=== PATIENT | female | born 1955 | race Caucasian/White ===

== ENCOUNTER → 2016-11-21 | Outpatient (CLI) | payer MEDICAID ==
[~2016-11-21] MED LIST: ABILIFY 15MG TA15 MG PO; ABILIFY5 MG PO; ALBUTEROL0.83 MG/ML IH; ARICEPT 5MG PO; ARICEPT10 MG PO; ASPIRIN 81M81 MG/TA2 PO; ATIVAN; ATIVAN 0.50.5 MG/TAB PO; ATIVAN 1MG T1 MG/TAB PO; ATIVAN0.5 MG PO; AZO-CRANBERRY450 MG PO; BENZTROPINE1 MG PO; BUSPAR10 MG PO; BUSPIRONE; CALCIUM600 MG PO; CALTRATE-600 W600 MG PO; CATAPRES 0.1MG0.1 MG PO; CELEXA 20MG20 MG/TAB PO; CELEXA20 MG PO; COGENTIN PO; DEPAKENE 250 MG/1 ML PO; DEPAKENE250 MG PO; DEPAKOTE DR500 MG PO; DEPAKOTE ER 50500 MG PO; DEPAKOTE500 M1 PO; DEPAKOTE500 MG PO; DESYREL 50MG50 MG PO; DILANTIN O100 MG/4 M PO; DILANTIN PO; DULCOLAX S10 MG/SUPP RC; DULCOLAX TAB5 MG PO; GENTLE LAXATIVE10 MG RC; HALDOL 2MG T2 MG/TAB PO; HALDOL 5MG T5 MG/TAB PO; HALDOL 5MG/ML5 MG/ML PO; HALDOL ORAL 22 MG/ML PO; LEVOTHYROXIN0.075 MG PO; LEVOTHYROXINE PO; LEVOXYL0.075 MG PO; LORTAB 5/500 501 TAB PO; MAALOX PLUS PO; MILK OF MA400 MG/51 PO; MILK OF MA400 MG/52; MILK OF MAGNESI30 ML PO; MIRALAX PA17 GM/Dose PO; MULTI-VITAMIN W1 TA1 PO; MVI; MYLANTA MAXIMU355 ML PO; NAMENDA XR PO; NAPROSYN375 MG PO; NORCO 325 MG-51 TAB PO; NORCO PO; OLANZAPINE IM; OMNICEF 300MG300 MG PO; PHENERGAN 25 TA25 MG; PLAVIX 75MG TAB75 MG PO; PRILOSEC 20MG20 MG PO; RISPERDAL 0.5M0.5 MG PO; RISPERDALC37.5 MG/2 IJ; SYNTHROID0.075 MG PO; SYNTHROID0.075 MG/T PO; SYNTHROID0.125 MG/T PO; TIROSINT75 MCG PO; TYLENOL 325MG325 MG PO; TYLENOL ARTHRI650 M1 PO; VENTOLIN0.09 MG IH; VITAMIN C500 MG PO; ZITHROMAX Z PA250 MG PO; ZOCOR 20MG20 MG PO; ZYPREXA ZYD10 MG/TAB PO; ZYPREXA10 MG
[2016-11-21 17:57] LABS: PH 7 (5-8); SQUAMOUS EPITHELIAL 0-2 /hpf; URINE APPEARANCE Clear; URINE BACTERIA None Seen /hpf; URINE BILIRUBIN Negative (NEGATIVE); URINE BLOOD Negative (NEGATIVE); URINE COLOR Straw; URINE GLUCOSE Negative (NEGATIVE); URINE KETONE Negative (NEGATIVE); URINE RBC None Seen /hpf; URINE UROBILINOGEN Negative (NEGATIVE); URINE WBC None Seen /hpf
== END ==
LOC: ZCOL.LAB 17:33
PROVIDERS: Internal Medicine
DX: F25.8 Other schizoaffective disorders (principal)

== ENCOUNTER → 2016-12-22 | Outpatient (CLI) | payer MEDICAID | LOC: ZCOL.LAB 08:30 | DX: Z01.89 Encounter for other specified special examinations (principal) ==

== ENCOUNTER → 2017-02-24 | Outpatient (CLI) | payer MEDICAID ==
[2017-02-24 21:59] LABS: BASO # 0.1 (0.0-0.2); BASO % 0.8 % (0.0-2.0); EOS # 0.1 (0.0-0.7); EOS % 1.1 % (0-4.0); GRAN % 63.6 % (42.2-75.2); HEMATOCRIT 40.9 % (37.0-47.0); HEMOGLOBIN 13.4 g/dl (12.5-16.0); LYMPH # 1.7 (1.2-3.4); LYMPH % 26.9 % (20.0-51.0); MEAN CELL VOLUME 97 fl (80.0-100.0); MEAN CORPUSCULAR HEMOGLOBIN 32 pg (27.0-31.0); MEAN CORPUSCULAR HGB CONC 33 g/dl (33.0-37.0); MEAN PLATELET VOLUME 11.6 fl (7.4-10.4); MONO # 0.5 (0.1-0.6); MONO % 7.6 % (1.7-9.3); PLATELET COUNT 187 K/mm3 (130-400); RED BLOOD COUNT 4.23 M/mm3 (4.10-5.30); REDCELL DISTRIBUTION WIDTH-CV 14.3 % (11.5-14.5); WHITE BLOOD COUNT 6.3 K/mm3 (4.8-10.8)
[2017-02-24 22:10] LABS: ADJUSTED CALCIUM 9.6 mg/dL (8.4-10.2); ALBUMIN 3.7 gm/dL (3.5-5.0); BILIRUBIN,TOTAL 0.6 mg/dL (0.0-1.0); CALCIUM 9.4 mg/dL (8.4-10.2); CREATININE, serum 0.49 mg/dL (0.52-1.25); POTASSIUM 4.8 mmol/L (3.4-5.0)
== END ==
LOC: ZCOL.LAB 13:48
PROVIDERS: Internal Medicine
DX: Z02.89 Encounter for other administrative examinations (principal)

== ENCOUNTER 2017-04-12 14:14 | Emergency (ER) | payer MEDICAID ==
[~2017-04-12] VITALS: Ht 160 cm; Wt 59.1 kg
[~2017-04-12 14:14] MED LIST changes: -DILANTIN PO; -DULCOLAX TAB5 MG PO; -MILK OF MA400 MG/52; -MULTI-VITAMIN W1 TA1 PO; -OMNICEF 300MG300 MG PO; -VITAMIN C500 MG PO
[2017-04-12 14:15] VITALS: BP 114/60; TEMP 97.5
[2017-04-12] MEDS ORDERED: MIRALAX PA17 GM/Dose PO (14:29)
[2017-04-12] MEDS ORDERED: DILANTIN PO (14:31)
[2017-04-12] MEDS ORDERED: MILK OF MA400 MG/52 (14:36)
[2017-04-12] MEDS ORDERED: ATIVAN 1MG T1 MG/TAB PO (14:44)
[2017-04-12 16:28] VITALS: PULSE 76
[2017-04-12] MEDS ORDERED: OMNICEF 300MG300 MG PO (16:28)
== END 2017-04-12 16:45 | disposition home or self-care (01) ==
LOC: COL.ER 14:14
DX: S61.315A Laceration without foreign body of left ring finger with damage to nail, initial encounter (principal); W22.8XXA Striking against or struck by other objects, initial encounter; Y92.129 Unspecified place in nursing home as the place of occurrence of the external cause; F20.9 Schizophrenia, unspecified
CPT/HCPCS: J2060

== ENCOUNTER 2017-05-04 16:30 | Emergency (ER) | payer MEDICAID ==
[~2017-05-04] VITALS: Ht 165.1 cm; Wt 63.6 kg
[~2017-05-04 16:30] MED LIST changes: +DILANTIN PO; +MILK OF MA400 MG/52; +OMNICEF 300MG300 MG PO
[2017-05-04 17:38] LABS: BASO % 0.5 % (0.0-2.0); EOS % 0.3 % (0-4.0); GRAN # 5.8 (1.4-6.5); GRAN % 67.8 % (42.2-75.2); HEMATOCRIT 42.2 % (37.0-47.0); HEMOGLOBIN 14.2 g/dl (12.5-16.0); LYMPH % 22.7 % (20.0-51.0); MEAN CELL VOLUME 95 fl (80.0-100.0); MEAN CORPUSCULAR HEMOGLOBIN 32 pg (27.0-31.0); MEAN CORPUSCULAR HGB CONC 34 g/dl (33.0-37.0); MEAN PLATELET VOLUME 10.8 fl (7.4-10.4); MONO # 0.7 (0.1-0.6); MONO % 8.4 % (1.7-9.3); PLATELET COUNT 238 K/mm3 (130-400); RED BLOOD COUNT 4.45 M/mm3 (4.10-5.30); REDCELL DISTRIBUTION WIDTH-CV 14.2 % (11.5-14.5); WHITE BLOOD COUNT 8.6 K/mm3 (4.8-10.8)
[2017-05-04 17:54] LABS: ADJUSTED CALCIUM 9.4 mg/dL (8.4-10.2); ALANINE AMINOTRANSFERASE 20 U/L (9-52); ALBUMIN 4.2 gm/dL (3.5-5.0); ALKALINE PHOSPHATASE 115 U/L (50-136); ANION GAP 11 mmol/L (7-16); BILIRUBIN,TOTAL 0.4 mg/dL (0.0-1.0); BLOOD UREA NITROGEN 9 mg/dL (7-17); CALCIUM 9.6 mg/dL (8.4-10.2); CARBON DIOXIDE 23 mmol/L (22-30); CHLORIDE 101 mmol/L (98-107); CREATININE, serum 0.51 mg/dL (0.52-1.25); GLUCOSE 103 mg/dL (74-106); POTASSIUM 4.4 mmol/L (3.4-5.0); SODIUM 135 mmol/L (137-145); TOTAL PROTEIN 6.9 gm/dL (6.4-8.2)
[2017-05-04 19:11] VITALS: BP 133/54; PULSE 74; TEMP 98
== END 2017-05-04 19:10 | disposition home or self-care (01) ==
LOC: COL.ER 16:30
PROVIDERS: Emergency Medicine
DX: S01.81XA Laceration without foreign body of other part of head, initial encounter (principal); F20.9 Schizophrenia, unspecified; G40.909 Epilepsy, unspecified, not intractable, without status epilepticus; F17.210 Nicotine dependence, cigarettes, uncomplicated; W05.0XXA Fall from non-moving wheelchair, initial encounter
CPT/HCPCS: Q2009

== ENCOUNTER 2017-05-08 20:05 | Emergency (ER) | payer MEDICAID ==
[~2017-05-08] VITALS: Ht 167.6 cm; Wt 72.7 kg
[2017-05-08 20:12] VITALS: BP 154/83; PULSE 101
[2017-05-08 20:44] LABS: BASO % 0.6 % (0.0-2.0); EOS # 0.1 (0.0-0.7); GRAN % 56.6 % (42.2-75.2); HEMATOCRIT 38.7 % (37.0-47.0); HEMOGLOBIN 12.9 g/dl (12.5-16.0); LYMPH # 2.3 (1.2-3.4); LYMPH % 31.9 % (20.0-51.0); MEAN CELL VOLUME 96 fl (80.0-100.0); MEAN CORPUSCULAR HEMOGLOBIN 32 pg (27.0-31.0); MEAN CORPUSCULAR HGB CONC 33 g/dl (33.0-37.0); MEAN PLATELET VOLUME 10.5 fl (7.4-10.4); MONO # 0.7 (0.1-0.6); MONO % 9.6 % (1.7-9.3); PLATELET COUNT 221 K/mm3 (130-400); RED BLOOD COUNT 4.02 M/mm3 (4.10-5.30); REDCELL DISTRIBUTION WIDTH-CV 14.5 % (11.5-14.5); WHITE BLOOD COUNT 7.1 K/mm3 (4.8-10.8)
[2017-05-08 20:50] LABS: PH 7 (5-8); SQUAMOUS EPITHELIAL None Seen /hpf; URINE APPEARANCE Clear; URINE BACTERIA None Seen /hpf; URINE BILIRUBIN Negative (NEGATIVE); URINE BLOOD Negative (NEGATIVE); URINE COLOR Colorless; URINE GLUCOSE Negative (NEGATIVE); URINE KETONE Negative (NEGATIVE); URINE RBC 0-2 /hpf; URINE UROBILINOGEN Negative (NEGATIVE); URINE WBC 0-2 /hpf
[2017-05-08 20:53] LABS: ADJUSTED CALCIUM 9.3 mg/dL (8.4-10.2); ALANINE AMINOTRANSFERASE 22 U/L (9-52); ALBUMIN 3.8 gm/dL (3.5-5.0); ALKALINE PHOSPHATASE 86 U/L (50-136); ANION GAP 8 mmol/L (7-16); BILIRUBIN,TOTAL 0.3 mg/dL (0.0-1.0); BLOOD UREA NITROGEN 9 mg/dL (7-17); CALCIUM 9.1 mg/dL (8.4-10.2); CARBON DIOXIDE 29 mmol/L (22-30); CHLORIDE 100 mmol/L (98-107); CREATININE, serum 0.56 mg/dL (0.52-1.25); GLUCOSE 100 mg/dL (74-106); SODIUM 136 mmol/L (137-145); TOTAL PROTEIN 6.4 gm/dL (6.4-8.2)
[2017-05-08 20:55] LABS: AMPHETAMINE URINE NEGATIVE; BARBITURATES URINE POSITIVE; BENZODIAZEPINES URINE POSITIVE; BUPRENORPHINE URINE NEGATIVE; METHADONE URINE NEGATIVE; OPIATES URINE NEGATIVE; OXYCODONE URINE NEGATIVE; PHENCYCLIDINE URINE NEGATIVE; PROPOXYPHENE URINE NEGATIVE; THC CANNABINOIDS URINE NEGATIVE
[2017-05-08] MEDS ORDERED: DULCOLAX TAB5 MG PO (21:35)
[2017-05-08] MEDS ORDERED: MULTI-VITAMIN W1 TA1 PO (21:37)
[2017-05-08] MEDS ORDERED: VITAMIN C500 MG PO (21:38)
== END 2017-05-09 00:14 | disposition home or self-care (01) ==
LOC: COL.ER 20:05
PROVIDERS: Family Medicine
DX: F29 Unspecified psychosis not due to a substance or known physiological condition (principal); F20.9 Schizophrenia, unspecified; F32.9 Major depressive disorder, single episode, unspecified; F03.90 Unspecified dementia, unspecified severity, without behavioral disturbance, psychotic disturbance, mood disturbance, and anxiety

== ENCOUNTER → 2017-05-14 | Outpatient (CLI) | payer MEDICAID ==
[~2017-05-14] MED LIST changes: +DULCOLAX TAB5 MG PO; +MULTI-VITAMIN W1 TA1 PO; +VITAMIN C500 MG PO
[2017-05-14 17:59] LABS: PROLACTIN 99.5 ng/mL (3.0-18.6)
== END ==
LOC: ZCOL.LAB 12:15
PROVIDERS: Internal Medicine
DX: F31.9 Bipolar disorder, unspecified (principal); F05 Delirium due to known physiological condition; E11.9 Type 2 diabetes mellitus without complications; R56.9 Unspecified convulsions

== ENCOUNTER → 2017-08-13 | Outpatient (REF) ==
[2017-08-13 06:06] LABS: BASO % 0.5 % (0.0-2.0); EOS # 0.1 (0.0-0.7); EOS % 1.5 % (0-4.0); GRAN # 2.9 (1.4-6.5); HEMATOCRIT 38.9 % (37.0-47.0); LYMPH # 2.4 (1.2-3.4); LYMPH % 39.5 % (20.0-51.0); MEAN CELL VOLUME 99 fl (80.0-100.0); MEAN CORPUSCULAR HEMOGLOBIN 33 pg (27.0-31.0); MEAN CORPUSCULAR HGB CONC 33 g/dl (33.0-37.0); MONO # 0.6 (0.1-0.6); MONO % 10.2 % (1.7-9.3); PLATELET COUNT 217 K/mm3 (130-400); RED BLOOD COUNT 3.93 M/mm3 (4.10-5.30); REDCELL DISTRIBUTION WIDTH-CV 13.7 % (11.5-14.5); WHITE BLOOD COUNT 6.1 K/mm3 (4.8-10.8)
[2017-08-13 06:14] LABS: ADJUSTED CALCIUM 9.8 mg/dL (8.4-10.2); ALBUMIN 3.2 gm/dL (3.5-5.0); BILIRUBIN,TOTAL 0.3 mg/dL (0.0-1.0); CALCIUM 9.2 mg/dL (8.4-10.2); CREATININE, serum 0.52 mg/dL (0.52-1.25); TOTAL PROTEIN 5.6 gm/dL (6.4-8.2)
[2017-08-13 06:50] LABS: PROLACTIN 105.9 ng/mL (3.0-18.6)
== END ==
LOC: ZCOL.LAB 05:57
PROVIDERS: Internal Medicine
DX: I48.91 Unspecified atrial fibrillation (principal); R56.9 Unspecified convulsions; E78.00 Pure hypercholesterolemia, unspecified

== ENCOUNTER → 2017-08-27 | Outpatient (REF) ==
[2017-08-27 04:05] LABS: HEMATOCRIT 38.6 % (37.0-47.0); HEMOGLOBIN 12.7 g/dl (12.5-16.0); MEAN CELL VOLUME 100 fl (80.0-100.0); MEAN CORPUSCULAR HEMOGLOBIN 33 pg (27.0-31.0); MEAN CORPUSCULAR HGB CONC 33 g/dl (33.0-37.0); MEAN PLATELET VOLUME 11.8 fl (7.4-10.4); PLATELET COUNT 164 K/mm3 (130-400); RED BLOOD COUNT 3.86 M/mm3 (4.10-5.30)
== END ==
LOC: ZCOL.LAB 03:57
PROVIDERS: Internal Medicine
DX: E03.9 Hypothyroidism, unspecified (principal); E78.00 Pure hypercholesterolemia, unspecified; I48.91 Unspecified atrial fibrillation

== ENCOUNTER → 2017-09-02 | Outpatient (CLI) | payer MEDICAID ==
[2017-09-02 21:52] LABS: HEMATOCRIT 37.6 % (37.0-47.0); HEMOGLOBIN 12.4 g/dl (12.5-16.0); MEAN CELL VOLUME 100 fl (80.0-100.0); MEAN CORPUSCULAR HEMOGLOBIN 33 pg (27.0-31.0); MEAN CORPUSCULAR HGB CONC 33 g/dl (33.0-37.0); MEAN PLATELET VOLUME 11.2 fl (7.4-10.4); PLATELET COUNT 194 K/mm3 (130-400); RED BLOOD COUNT 3.76 M/mm3 (4.10-5.30); WHITE BLOOD COUNT 7.8 K/mm3 (4.8-10.8)
[2017-09-02 22:00] LABS: ADJUSTED CALCIUM 9.7 mg/dL (8.4-10.2); ALBUMIN 3.3 gm/dL (3.5-5.0); BILIRUBIN,TOTAL 0.2 mg/dL (0.0-1.0); CALCIUM 9.1 mg/dL (8.4-10.2); CHOLESTEROL RISK RATIO 2.3; CREATININE, serum 0.57 mg/dL (0.52-1.25); POTASSIUM 3.9 mmol/L (3.4-5.0); TOTAL PROTEIN 5.7 gm/dL (6.4-8.2)
[2017-09-02 22:30] LABS: THYROID STIMULATING HORMONE 2.76 uIU/mL (0.465-4.680)
== END ==
LOC: ZCOL.LAB 21:44
PROVIDERS: Internal Medicine
DX: D72.819 Decreased white blood cell count, unspecified (principal); I10 Essential (primary) hypertension; E78.00 Pure hypercholesterolemia, unspecified; E03.9 Hypothyroidism, unspecified

== ENCOUNTER 2017-11-23 10:58 | Emergency (ER) | payer MEDICAID ==
[~2017-11-23] VITALS: Ht 167.6 cm; Wt 63.6 kg
[2017-11-23 11:41] LABS: BASO % 0.4 % (0.0-2.0); EOS # 0.1 (0.0-0.7); EOS % 1.2 % (0-4.0); GRAN # 3.9 (1.4-6.5); GRAN % 56.2 % (42.2-75.2); HEMATOCRIT 38.8 % (37.0-47.0); HEMOGLOBIN 12.8 g/dl (12.5-16.0); LYMPH # 2.3 (1.2-3.4); LYMPH % 32.9 % (20.0-51.0); MEAN CELL VOLUME 99 fl (80.0-100.0); MEAN CORPUSCULAR HEMOGLOBIN 33 pg (27.0-31.0); MEAN CORPUSCULAR HGB CONC 33 g/dl (33.0-37.0); MEAN PLATELET VOLUME 10.1 fl (7.4-10.4); MONO # 0.6 (0.1-0.6); MONO % 8.1 % (1.7-9.3); PLATELET COUNT 224 K/mm3 (130-400); RED BLOOD COUNT 3.92 M/mm3 (4.10-5.30); REDCELL DISTRIBUTION WIDTH-CV 13.4 % (11.5-14.5)
[2017-11-23 11:53] LABS: ALBUMIN 3.6 gm/dL (3.5-5.0); BILIRUBIN,TOTAL 0.3 mg/dL (0.0-1.0); CALCIUM 8.8 mg/dL (8.4-10.2); CREATININE, serum 0.67 mg/dL (0.52-1.25); POTASSIUM 4.8 mmol/L (3.4-5.0); TOTAL PROTEIN 6.3 gm/dL (6.4-8.2)
[2017-11-23 12:19] LABS: COLLECTION METHOD CATHETER
[2017-11-23 12:20] LABS: TSH w REFLEX 1.3 uIU/mL (0.465-4.680)
[2017-11-23 12:30] LABS: PH 7 (5-8); SQUAMOUS EPITHELIAL None Seen /hpf; URINE APPEARANCE Clear; URINE BACTERIA None Seen /hpf; URINE BILIRUBIN Negative (NEGATIVE); URINE BLOOD Negative (NEGATIVE); URINE COLOR Yellow; URINE GLUCOSE Negative (NEGATIVE); URINE KETONE Negative (NEGATIVE); URINE LEUKOCYTE ESTERASE Negative (NEGATIVE); URINE NITRATE Negative (NEGATIVE); URINE PROTEIN(semi-quant) Negative (NEGATIVE); URINE RBC 0-2 /hpf; URINE UROBILINOGEN Negative (NEGATIVE)
[2017-11-23 15:50] VITALS: BP 133/59; PULSE 75
== END 2017-11-23 15:51 | disposition home or self-care (01) ==
LOC: COL.ER 10:58
PROVIDERS: Physician Assistant
DX: S00.93XA Contusion of unspecified part of head, initial encounter (principal); E03.9 Hypothyroidism, unspecified; F31.9 Bipolar disorder, unspecified; K21.9 Gastro-esophageal reflux disease without esophagitis; I48.91 Unspecified atrial fibrillation; F03.90 Unspecified dementia, unspecified severity, without behavioral disturbance, psychotic disturbance, mood disturbance, and anxiety; F25.9 Schizoaffective disorder, unspecified; Z91.81 History of falling; W01.190A Fall on same level from slipping, tripping and stumbling with subsequent striking against furniture, initial encounter; Y92.129 Unspecified place in nursing home as the place of occurrence of the external cause

== ENCOUNTER → 2017-11-25 | Outpatient (REF) ==
[2017-11-25 12:21] LABS: CALCIUM 9.1 mg/dL (8.4-10.2); CREATININE, serum 0.54 mg/dL (0.52-1.25); POTASSIUM 4.9 mmol/L (3.4-5.0)
== END ==
LOC: ZCOL.LAB 12:05
PROVIDERS: Internal Medicine
DX: E03.9 Hypothyroidism, unspecified (principal)

== ENCOUNTER → 2017-11-25 | Outpatient (CLI) | payer MEDICAID | LOC: ZCOL.LAB 12:01 | DX: Z01.89 Encounter for other specified special examinations (principal) ==

== ENCOUNTER 2017-12-18 06:34 | Emergency (ER) | payer MEDICAID ==
[~2017-12-18] VITALS: Ht 152.4 cm; Wt 56.8 kg
[2017-12-18] MEDS ORDERED: ALBUTEROL0.83 MG/ML IH (07:13)
[2017-12-18] MEDS ORDERED: RISPERDAL CONST50 MG IM (07:15)
[2017-12-18] MEDS ORDERED: DEPAKENE250 MG PO (07:19)
[2017-12-18] MEDS ORDERED: TAMIFLU 75MG75 MG PO (07:20)
[2017-12-18 08:01] LABS: BASO # 0.1 (0.0-0.2); BASO % 0.6 % (0.0-2.0); EOS # 0.3 (0.0-0.7); EOS % 2.8 % (0-4.0); GRAN # 5.8 (1.4-6.5); GRAN % 64.7 % (42.2-75.2); HEMOGLOBIN 12.2 g/dl (12.5-16.0); LYMPH # 1.6 (1.2-3.4); LYMPH % 18.3 % (20.0-51.0); MEAN CELL VOLUME 97 fl (80.0-100.0); MEAN CORPUSCULAR HEMOGLOBIN 33 pg (27.0-31.0); MEAN CORPUSCULAR HGB CONC 34 g/dl (33.0-37.0); MEAN PLATELET VOLUME 10.2 fl (7.4-10.4); MONO # 1.2 (0.1-0.6); MONO % 13.3 % (1.7-9.3); PLATELET COUNT 224 K/mm3 (130-400); RED BLOOD COUNT 3.67 M/mm3 (4.10-5.30); REDCELL DISTRIBUTION WIDTH-CV 13.8 % (11.5-14.5)
[2017-12-18 08:05] LABS: HEMATOCRIT 35.6 % (37.0-47.0)
[2017-12-18 08:06] LABS: ALBUMIN 3.5 gm/dL (3.5-5.0); BILIRUBIN,TOTAL 0.4 mg/dL (0.0-1.0); CALCIUM 8.8 mg/dL (8.4-10.2); CREATININE, serum 0.46 mg/dL (0.52-1.25); POTASSIUM 3.8 mmol/L (3.4-5.0); TOTAL PROTEIN 6.2 gm/dL (6.4-8.2)
[2017-12-18 08:12] LABS: VALPROIC ACID (DEPAKENE) 32.4 ug/mL (50.0-100.0)
[2017-12-18 08:23] LABS: COLLECTION METHOD CATHETER
[2017-12-18 08:35] LABS: PH 8 (5-8); SQUAMOUS EPITHELIAL 0-2 /hpf; URINE APPEARANCE Clear; URINE BACTERIA None Seen /hpf; URINE BILIRUBIN Negative (NEGATIVE); URINE BLOOD Negative (NEGATIVE); URINE COLOR Straw; URINE GLUCOSE Negative (NEGATIVE); URINE KETONE Negative (NEGATIVE); URINE LEUKOCYTE ESTERASE Negative (NEGATIVE); URINE NITRATE Negative (NEGATIVE); URINE PROTEIN(semi-quant) Negative (NEGATIVE); URINE RBC 0-2 /hpf; URINE UROBILINOGEN Negative (NEGATIVE)
[2017-12-18 08:43] LABS: THYROID STIMULATING HORMONE 2.41 uIU/mL (0.465-4.680)
[2017-12-18 09:15] VITALS: BP 123/68; PULSE 72
== END 2017-12-18 09:16 | disposition home or self-care (01) ==
LOC: COL.ER 06:34
PROVIDERS: Emergency Medicine
DX: S70.02XA Contusion of left hip, initial encounter (principal); F25.9 Schizoaffective disorder, unspecified; F03.90 Unspecified dementia, unspecified severity, without behavioral disturbance, psychotic disturbance, mood disturbance, and anxiety; R40.2412 Glasgow coma scale score 13-15, at arrival to emergency department; W18.39XA Other fall on same level, initial encounter; Y92.129 Unspecified place in nursing home as the place of occurrence of the external cause

== ENCOUNTER → 2018-03-16 | Outpatient (CLI) | payer MEDICAID ==
[~2018-03-16] MED LIST changes: +RISPERDAL CONST50 MG IM; +TAMIFLU 75MG75 MG PO
[2018-03-16 18:48] LABS: BASO % 0.7 % (0.0-2.0); EOS # 0.1 (0.0-0.7); EOS % 0.9 % (0-4.0); GRAN # 3.2 (1.4-6.5); GRAN % 56.4 % (42.2-75.2); HEMATOCRIT 40.8 % (37.0-47.0); HEMOGLOBIN 13.5 g/dl (12.5-16.0); LYMPH % 34.8 % (20.0-51.0); MEAN CELL VOLUME 100 fl (80.0-100.0); MEAN CORPUSCULAR HEMOGLOBIN 33 pg (27.0-31.0); MEAN CORPUSCULAR HGB CONC 33 g/dl (33.0-37.0); MEAN PLATELET VOLUME 11.6 fl (7.4-10.4); MONO # 0.4 (0.1-0.6); PLATELET COUNT 187 K/mm3 (130-400); RED BLOOD COUNT 4.08 M/mm3 (4.10-5.30); REDCELL DISTRIBUTION WIDTH-CV 13.4 % (11.5-14.5)
[2018-03-16 19:07] LABS: ALBUMIN 3.6 gm/dL (3.5-5.0); BILIRUBIN,TOTAL 0.2 mg/dL (0.0-1.0); CALCIUM 9.2 mg/dL (8.4-10.2); CREATININE, serum 0.57 mg/dL (0.52-1.25); POTASSIUM 4.4 mmol/L (3.4-5.0); TOTAL PROTEIN 6.4 gm/dL (6.4-8.2)
[2018-03-16 19:19] LABS: VALPROIC ACID (DEPAKENE) 57.7 ug/mL (50.0-100.0)
[2018-03-16 19:37] LABS: THYROID STIMULATING HORMONE 0.882 uIU/mL (0.465-4.680)
== END ==
LOC: ZCOL.LAB 18:37
PROVIDERS: Internal Medicine
DX: F31.9 Bipolar disorder, unspecified (principal); F25.9 Schizoaffective disorder, unspecified; E03.9 Hypothyroidism, unspecified; E78.00 Pure hypercholesterolemia, unspecified; R56.9 Unspecified convulsions; I48.91 Unspecified atrial fibrillation

== ENCOUNTER 2018-03-31 00:28 | Emergency (ER) | payer MEDICAID ==
[2018-03-31 00:29] VITALS: TEMP 98.7
[2018-03-31 01:59] LABS: INR 0.9 (0.8-3.0); PROTHROMBIN TIME 10.6 SECONDS (9.7-12.8)
[2018-03-31 02:03] LABS: BASO % 0.3 % (0.0-2.0); EOS # 0.1 (0.0-0.7); EOS % 0.8 % (0-4.0); GRAN % 65.8 % (42.2-75.2); HEMATOCRIT 38.7 % (37.0-47.0); HEMOGLOBIN 13.3 g/dl (12.5-16.0); LYMPH # 1.8 (1.2-3.4); LYMPH % 23.2 % (20.0-51.0); MEAN CELL VOLUME 98 fl (80.0-100.0); MEAN CORPUSCULAR HEMOGLOBIN 34 pg (27.0-31.0); MEAN CORPUSCULAR HGB CONC 34 g/dl (33.0-37.0); MEAN PLATELET VOLUME 10.9 fl (7.4-10.4); MONO # 0.7 (0.1-0.6); MONO % 9.6 % (1.7-9.3); PLATELET COUNT 158 K/mm3 (130-400); RED BLOOD COUNT 3.94 M/mm3 (4.10-5.30); REDCELL DISTRIBUTION WIDTH-CV 12.9 % (11.5-14.5)
[2018-03-31 02:09] LABS: ALANINE AMINOTRANSFERASE 16 U/L (9-52); ALBUMIN 3.4 gm/dL (3.5-5.0); ALKALINE PHOSPHATASE 105 U/L (50-136); ANION GAP 12 mmol/L (7-16); AST,SGOT 17 U/L (15-37); BILIRUBIN,TOTAL 0.4 mg/dL (0.0-1.0); BLOOD UREA NITROGEN 10 mg/dL (7-17); CARBON DIOXIDE 29 mmol/L (22-30); CHLORIDE 100 mmol/L (98-107); CREATININE, serum 0.53 mg/dL (0.52-1.25); GLUCOSE 91 mg/dL (74-106); POTASSIUM 3.6 mmol/L (3.4-5.0); SODIUM 141 mmol/L (137-145); TOTAL PROTEIN 6.4 gm/dL (6.4-8.2)
[2018-03-31 02:19] LABS: TROPONIN-I < 0.012 ng/mL (0.000-0.034)
[2018-03-31 03:07] LABS: PHENYTOIN (DILANTIN) 22.3 ug/mL (10.0-20.0)
[2018-03-31 03:09] LABS: VALPROIC ACID (DEPAKENE) 71.8 ug/mL (50.0-100.0)
[2018-03-31 05:00] VITALS: BP 130/60; PULSE 58
== END 2018-03-31 05:00 | disposition home or self-care (01) ==
LOC: COL.ER 00:28
PROVIDERS: Emergency Medicine
DX: S00.83XA Contusion of other part of head, initial encounter (principal); F20.9 Schizophrenia, unspecified; F03.90 Unspecified dementia, unspecified severity, without behavioral disturbance, psychotic disturbance, mood disturbance, and anxiety; Z91.81 History of falling; F17.210 Nicotine dependence, cigarettes, uncomplicated; W19.XXXA Unspecified fall, initial encounter; Y92.129 Unspecified place in nursing home as the place of occurrence of the external cause

== ENCOUNTER 2018-04-11 19:28 | Emergency (ER) | payer MEDICAID ==
[~2018-04-11] VITALS: Ht 157.5 cm; Wt 52.3 kg
[2018-04-11 19:35] VITALS: TEMP 98
[2018-04-11] MEDS ORDERED: TYLENOL 325MG325 MG PO (20:57)
[2018-04-11] MEDS ORDERED: CEPHALEXIN500 M1 PO (21:34)
[2018-04-11 22:05] VITALS: BP 139/63; PULSE 67
[2018-04-12] MEDS ORDERED: MILK OF MA400 MG/52 (05:52)
[2018-04-12] MEDS ORDERED: DULCOLAX TAB5 MG PO (05:53)
[2018-04-12] MEDS ORDERED: SEROQUEL50 MG PO (05:56)
[2018-04-12] MEDS ORDERED: ANTI-DIARRHEAL2 MG PO (05:58)
== END 2018-04-11 22:15 | disposition home or self-care (01) ==
LOC: COL.ER 19:28
DX: S01.511A Laceration without foreign body of lip, initial encounter (principal); S01.81XA Laceration without foreign body of other part of head, initial encounter; F17.210 Nicotine dependence, cigarettes, uncomplicated; F20.9 Schizophrenia, unspecified; Z23 Encounter for immunization; W06.XXXA Fall from bed, initial encounter; Y92.129 Unspecified place in nursing home as the place of occurrence of the external cause

== ENCOUNTER 2018-04-12 00:34 | Emergency (ER) | payer MEDICAID ==
[~2018-04-12 00:34] MED LIST changes: +CEPHALEXIN500 M1 PO
[2018-04-12 00:40] VITALS: BP 150/65
[2018-04-12 03:00] VITALS: PULSE 85; TEMP 98.7
[2018-04-12] MEDS ORDERED: MILK OF MA400 MG/52 (05:52)
[2018-04-12] MEDS ORDERED: DULCOLAX TAB5 MG PO (05:53)
[2018-04-12] MEDS ORDERED: SEROQUEL50 MG PO (05:56)
[2018-04-12] MEDS ORDERED: ANTI-DIARRHEAL2 MG PO (05:58)
== END 2018-04-12 03:00 | disposition home or self-care (01) ==
LOC: COL.ER 00:34
DX: S01.81XA Laceration without foreign body of other part of head, initial encounter (principal); F03.90 Unspecified dementia, unspecified severity, without behavioral disturbance, psychotic disturbance, mood disturbance, and anxiety; F17.210 Nicotine dependence, cigarettes, uncomplicated; X58.XXXA Exposure to other specified factors, initial encounter